=== PATIENT | female | born 1995 | race Caucasian/White ===

== ENCOUNTER 2018-03-09 06:13 | Emergency (ER) | payer BC, MEDICAID ==
[2018-03-09 06:19] VITALS: BP 120/82
[2018-03-09] MEDS ORDERED: ClonazePAM 0.5 MG Tab PO ONE (06:21)
--- NOTE | 2018-03-09 06:25 | EDM.PDOC ---
ED HPI GENERAL MEDICAL PROBLEM - General Chief Complaint: Behavioral/Psych Stated Complaint: PANICK ATTACK [id number] Time Seen by Provider: 03/09/18 06:22 Source of Information: Reports: Patient History Limitations: Reports: No Limitations - History of Present Illness INITIAL COMMENTS - FREE TEXT/NARRATIVE: unable to find clonaz for bipolar. - Related Data Allergies Allergy/AdvReac Type Severity Reaction Status Date / Time latex Allergy Rash Verified 03/09/18 06:21 Home Meds: Home Meds Norplant 1 device IMPLANT ASDIRECTED 03/07/15 [History] ARIPiprazole [Aripiprazole] 1 tab PO DAILY 03/09/18 [History] ClonazePAM [KlonoPIN] 1 mg PO TID PRN 03/09/18 [History] Methylphenidate HCl [Methylphenidate ER] 54 mg PO DAILY 03/09/18 [History] Past Medical History HEENT History: Reports: Impaired Vision Other HEENT History: WEARS CORRECTIVE LENSES Cardiovascular History: Reports: None Respiratory History: Reports: None Gastrointestinal History: Reports: None Genitourinary History: Reports: None HOTEL HOUSEMAN History: Reports: Other (See Below) 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 Musculoskeletal History: Reports: Other (See Below) Other Musculoskeletal History: cartilage in hips wearing away and tendonitis in left ankle Other Neuro History: meningitis in 07/08 Psychiatric History: Reports: Anxiety, Depression Hematologic History: Reports: Iron Deficiency Other Hematologic History: frequent periods Immunologic History: Reports: None Oncologic (Cancer) History: Reports: None Other Dermatologic History: sensitive - Infectious Disease History Infectious Disease History: Reports: Meningitis, RSV - Past Surgical History Neurological Surgical History: Reports: None, Other (See Below) Social & Family History - Living Situation & Occupation Living situation: Reports: with Family ED ROS GENERAL - Review of Systems Review Of Systems: ROS reveals no pertinent complaints other than HPI. - Physical Exam Exam: See Below Exam Limited By: No Limitations General Appearance: Alert, WD/WN, Anxious, Mild Distress, Other (crying) Eye Exam: Bilateral Eye: PERRL (pupils ER @ 4mm) Ears: Hearing Grossly Normal Throat/Mouth: Normal Voice, No Airway Compromise Head Exam: Atraumatic Neck: Non-Tender, Full Range of Motion Respiratory/Chest: No Respiratory Distress Cardiovascular: Regular Rate, Rhythm GI/Abdominal: Soft, Non-Tender Neuro Exam (Abbreviated): Alert, Oriented, Normal Cognition, Normal Gait, No Motor/Sensory Deficits Psychiatric: Tearful Skin Exam: Warm, Dry, Normal Color Course - Vital Signs Last Recorded V/S: Last Vital Signs Temp 37.2 C 03/09/18 06:18 Pulse 84 03/09/18 06:18 Resp BP 120/82 03/09/18 06:18 Pulse Ox 100 03/09/18 06:18 - Orders/Labs/Meds Meds: Medications Discontinued Medications Generic Name Dose Route Start Last Admin Trade Name Freq PRN Reason Stop Dose Admin Clonazepam 1 mg 03/09/18 06:21 03/09/18 06:28 Klonopin PO 03/09/18 06:22 1 mg ONETIME ONE Administration Departure - Departure Time of Disposition: 06:55 Disposition: Home, Self-Care 01 Condition: Good Clinical Impression: Panic anxiety syndrome - Discharge Information Instructions: Panic Attack, [id number] Forms: ED Department Discharge Additional Instructions: 1) rest and sleep 2) notify family doctor for med refil 3) recheck as needed rx given; klonopin 1mg daily prn x 6
== END 2018-03-09 06:57 | disposition home or self-care (01) ==
LOC: DL.ED 06:13
DX: F41.0 Panic disorder [episodic paroxysmal anxiety] (principal); Z79.899 Other long term (current) drug therapy; Z91.040 Latex allergy status
CPT/HCPCS: 99283; A9270